=== PATIENT | female | born 1990 | race Caucasian/White ===

== ENCOUNTER → 2019-05-01 | Outpatient (CLI) | payer OTHER ==
--- NOTE | 2019-05-01 11:00 | XR ---
EXAMINATION TYPE: XR thoracic spine 2V DATE OF EXAM: 05/01/2019 COMPARISON: Cervical spine images same date HISTORY: Pain in thoracic spine TECHNIQUE: 3 views thoracic spine FINDINGS: The T1 level is excluded from the [id number]. This is included on the cervical spine por tion of the study. There appear to be 12 thoracic type vertebral bodies. T2-T12 pedicles are intact. Disc heights are preserved. Vertebral body heights are preserved. IMPRESSION: 1. Visualized thoracic spine is unremarkable.
--- NOTE | 2019-05-01 11:01 | XR ---
EXAMINATION TYPE: XR cervical spine limited DATE OF EXAM: 05/01/2019 COMPARISON: None HISTORY: Pain in thoracic spine x1 year TECHNIQUE: Three-view cervical spine FINDINGS: There is a kyphosis centered at C5. The prevertebral space is normal. Disc heights are pres erved. Vertebral body heights are preserved. Posterior spinal lamellar line is intact. Odontoid appea rs unremarkable. T1 is visualized on this examination appears normal. IMPRESSION: 1. Cervical kyphosis which can related to muscle spasm. 2. No acute osseous abnormality cervical spine.
== END | disposition home or self-care (01) ==
LOC: RADXRMAIN 10:08
PROVIDERS: ATTEND Family Medicine
DX: M54.6 Pain in thoracic spine (principal); M40.202 Unspecified kyphosis, cervical region
CPT/HCPCS: 72040; 72070

== ENCOUNTER → 2023-08-10 | Outpatient (CLI) | payer BC ==
--- NOTE | 2023-08-21 15:57 | CT ---
EXAMINATION TYPE: CT soft tissue neck w con CT DLP: 292 mGycm, Automated exposure control for dose reduction was used. DATE OF EXAM: 08/10/2023 10:06 AM COMPARISON: . CLINICAL INDICATION:Female, 32 years old with history of R22.1 LOCALIZED SWELLING, MASS AND LUMP, NEC K; PHH, swelling under Lt chin (marked with BB) TECHNIQUE: Standard enhanced CT of the neck. Axial sections with coronal and sagittal reformats were obtained. Contrast used:100 mL of Isovue 300 with IV Contrast, (None if empty) Oral contrast used: (None if empty) FINDINGS: Brain: Visualized portions are grossly unremarkable. Orbits: Unremarkable Sinuses: Grossly unremarkable. Spaces of the neck: Clear and symmetric. Musculoskeletal: No acute osseous pathology. Lymph nodes: At the presumed site of interest, 1 cm posterior to the mandible there is a 8 mm lymph node, not pathologic by size criteria. Vascular structures: Visualized major arteries are patent without evidence of aneurysm. Thoracic Inlet/airway: Airway is patent. The lung apices are clear. Soft tissues/Thyroid: Thyroid and remainder of the soft tissues are unremarkable. Other: none. IMPRESSION 1. No definite evidence for significant abnormality. 2. At the presumed site of interest, 1 cm posterior to the left mandible there is an 8 mm lymph node , not pathologic by size criteria.
== END | disposition home or self-care (01) ==
LOC: RADCTMAIN 09:38
PROVIDERS: ATTEND Otolaryngology
DX: R22.1 Localized swelling, mass and lump, neck (principal)
CPT/HCPCS: 70491; Q9967